=== PATIENT | female | born 1985 | race American Indian/Alaskan Native ===

== ENCOUNTER 2020-08-31 14:35 | Emergency (ER) | payer MEDICAID ==
--- NOTE | 2020-08-31 16:36 | Emergency Department Report ---
HPI - General Chief Complaint: Psych Time Seen by Provider: 08/31/20 16:11 - HPI HPI: This is a 34-year-old -[place] female presents to the emergency department via EMS from [facility], which is some type of temporary residence or personal care type home, with the need for a mental health evaluation. The patient denies any complaints or any particular reason as to why she is in our emergency department. EMS says that the patient was pacing around and having inappropriate conversations with herself after having a verbal altercation with another resident. At the time of my examination the patient is calm and appropriate, oriented, and in no acute distress. She admits to a history of bipolar disorder and schizophrenia for which she is compliant with medications. Patient denies any current suicidal or homicidal ideations, or any hallucinations. ED Past Medical Hx - Social History Smoking Status: Never Smoker Substance Use Type: None ED Review of Systems ROS: Stated complaint: PSYCH Other details as noted in HPI Comment: All other systems reviewed and negative Constitutional: denies: chills, fever Eyes: denies: eye pain, vision change ENT: denies: ear pain, throat pain Respiratory: denies: cough, shortness of breath Cardiovascular: denies: chest pain, palpitations Gastrointestinal: denies: abdominal pain, vomiting Genitourinary: dysuria. denies: discharge Musculoskeletal: denies: back pain, arthralgia Skin: denies: rash, lesions Neurological: denies: headache, weakness Physical Exam - Physical Exam Vital Signs: Vital Signs 08/31/20 15:09 Temperature 98.2 F Pulse Rate 86 Respiratory 12 Rate Blood Pressure 92/59 [Right] O2 Sat by Pulse 100 Oximetry Physical Exam: GENERAL: The patient is well-developed well-nourished. HENT: Normocephalic. Atraumatic. Patient has moist mucous membranes. EYES: Extraocular motions are intact. NECK: Supple. Trachea is midline. CHEST/LUNGS: Clear to auscultation. There is no respiratory distress noted. HEART/CARDIOVASCULAR: Regular. There is no tachycardia. There is no murmur. ABDOMEN: Abdomen is soft, nontender. Patient has normal bowel sounds. There is no abdominal distention. SKIN: Skin is warm and dry. NEURO: The patient is awake, alert, and cooperative. The patient has no focal neurologic deficits. Normal speech. MUSCULOSKELETAL: There is no tenderness or deformity. There is no limitation range of motion. ED Course Vital Signs 08/31/20 15:09 Temperature 98.2 F Pulse Rate 86 Respiratory 12 Rate Blood Pressure 92/59 [Right] O2 Sat by Pulse 100 Oximetry ED Medical Decision Making - Lab Data Result diagrams: 08/31/20 16:41 08/31/20 16:41 - Medical Decision Making This patient presents to the emergency department for what appears to be a mental health evaluation after she had some verbal altercation with someone at this temporary snf and was seen responding to internal stimuli. At the time of my examination the patient is calm and cooperative. I do not witness her exhibiting any acute psychosis other than fixating on drinking more and more juice. She does not express any suicidal or homicidal ideations. The patient was placed on ED hold but did not appear to require a 1013. The psychiatric machine operator cane cutter, Karena, later spoke to the patient and the patient's family and was able to find out that she also has some history of mental retardation. Therefore the DD team was contacted to come and evaluate the patient for further disposition. The patient's labs have thus far been unremarkable including CBC, metabolic panel, blood alcohol level, and Depakote level. Vital signs reassuring including being afebrile. If the decision is made that the patient requires inpatient stabilization, the patient would be considered medically cleared for psychiatric placement. Critical Care Time: No Critical care attestation.: If time is entered above; I have spent that time in minutes in the direct care of this critically ill patient, excluding procedure time. ED Disposition Clinical Impression: Bipolar disorder Disposition: DC-01 TO HOME OR SELFCARE Is pt being admited?: No Condition: Stable Instructions: Managing Bipolar Disorder Additional Instructions: OUTPATIENT MENTAL HEALTH RESOURCES [facility], [facility] Kimberlee Peñaloza MD: [address] [place] [address] [place], [place] [id number] [facility]: [employer] [address] [place] [address] [place] [address] [phone] [facility]: [facility]: [address] [place] [address] [address] [place] [address] [place] [address] [facility] [address] [facility]: Parth Olivo MD: [address] [facility] [address] [facility] [address] [facility]: [address] [place] [phone] [place] CRISIS AND ACCESS LINE: Referrals: PRIMARY CAREMD [Primary Care Provider] - 3-5 Days
[2020-08-31 17:08] LABS: Basophils % (Auto) 0.5 % (0.0-1.8); Eosinophils # (Auto) 0.1 K/mm3 (0.0-0.4); Eosinophils % (Auto) 1.6 % (0.0-4.3); Hematocrit 38.8 % (30.3-42.9); Hemoglobin 13.1 gm/dl (10.1-14.3); Lymphocytes # (Auto) 1.9 K/mm3 (1.2-5.4); Lymphocytes % (Auto) 31.8 % (13.4-35.0); Mean Corpuscular HGB Conc 34 % (30-34); Mean Corpuscular Volume 96 fl (79-97); Monocytes # (Auto) 0.7 K/mm3 (0.0-0.8); Monocytes % (Auto) 11.5 % (0.0-7.3); Platelet Count 200 K/mm3 (140-440); Red Blood Count 4.05 M/mm3 (3.65-5.03); Red Cell Distribution Width 13.7 % (13.2-15.2)
[2020-08-31 17:17] LABS: BUN/Creatinine Ratio 19; Blood Urea Nitrogen 15 mg/dL (7-17); Calcium 9.6 mg/dL (8.4-10.2); Hemolysis Index 30
[2020-09-01 09:45] VITALS: BP 110/68
== END 2020-09-01 13:07 | disposition home or self-care (01) ==
LOC: ED 14:35
DX: F31.9 Bipolar disorder, unspecified (principal)
CPT/HCPCS: 36415; 80048; 80164; 80320; 84703; 85025; G0480